=== PATIENT | female | born 1950 | race Caucasian/White ===

== ENCOUNTER 2016-07-14 05:23 | Emergency (ER) | payer MEDICARE ==
[2016-07-14] MEDS ORDERED: IPRATROPIUM/ALBUTEROL 0.5-2.5 MG/3 ML AMPUL NEB ONE (05:51)
[2016-07-14] MEDS ORDERED: PREDNISONE 20 MG TABLET PO ONE (05:51)
[2016-07-14] MEDS: ALBUTEROL SULFATE 0.083% NEB 2.5 MG/3 ML AMPUL NEB SCH ×2 (06:02→06:48)
[2016-07-14] MEDS ORDERED: HYDROCODONE/ACETAMINOPHEN 5-325 MG TABLET PO ONE (06:36)
--- NOTE | 2016-07-14 06:58 | ER Document Report ---
ED General - General Mode of Arrival: Medic Information source: Patient, Emergency Med Personnel, Outside Facility Records TRAVEL OUTSIDE OF THE [place] IN LAST 30 DAYS: No - HPI Patient complains to provider of: Right Rib Pain Onset: Yesterday Onset/Duration: Sudden Associated symptoms: Hurts to breath, Other - Neck pain Exacerbated by: Walking - General Chief Complaint: Breathing Difficulty Stated Complaint: FALL/DIFFICULTY BREATHING Notes: Patient is a 65-year-old female presenting to the emergency department concerned of right rib and left neck pain after she fell giving her dog a bath yesterday. Patient states she stepped out of the tub and slipped on some water , breaking her toilet. Patient denies any loss of consciousness. Patient states that she is having some difficulty breathing because of the rib pain. Patient also states that she has been coughing with green sputum for the past 2 days and she is slow just walking secondary to the difficulty breathing. (MARCELLE CASON) - Related Data Allergies/Adverse Reactions: Sulfa (Sulfonamide Antibiotics) Allergy (Verified 07/14/16 05:36) Past Medical History - General Information source: Patient, Relative - - Social History Smoking Status: Current Every Day Smoker Chew tobacco use (# tins/day): No Frequency of alcohol use: None Drug Abuse: None Family History: Reviewed & Not Pertinent Patient has suicidal ideation: No Patient has homicidal ideation: No Pulmonary Medical History: Reports: Hx Bronchitis, Hx COPD, Hx Pneumonia Neurological Medical History: Reports: Hx Cerebrovascular Accident - 2011 Renal/ Medical History: Denies: Hx Peritoneal Dialysis Past Surgical History: Reports: Hx Cardiac Surgery - Stent placed 05/14/2009 - Immunizations Hx Diphtheria, Pertussis, Tetanus Vaccination: - unsure Review of Systems - Review of Systems Constitutional: No symptoms reported EENT: No symptoms reported Cardiovascular: No symptoms reported Respiratory: No symptoms reported Gastrointestinal: No symptoms reported Genitourinary: No symptoms reported Female Genitourinary: No symptoms reported Musculoskeletal: See HPI, Neck pain - Left, Other - Right rib pain Skin: No symptoms reported Hematologic/Lymphatic: No symptoms reported Neurological/Psychological: No symptoms reported. denies: Lost consciousness -: Yes All other systems reviewed and negative Physical Exam - General General appearance: Alert - HEENT Head: Normocephalic, Atraumatic Eyes: Normal Pupils: PERRL - Respiratory Chest status: Nontender, Pain with deep breathing - Rib pain Breath sounds: Rhonchi - Cardiovascular Rhythm: Regular Heart sounds: Normal auscultation Murmur: No - Abdominal Distension: No distension Bowel sounds: Normal Tenderness: Tender - Right anterior and posterior rib tenderness with compression Organomegaly: No organomegaly - Back Back: Normal, Nontender - Extremities General upper extremity: Normal inspection, Nontender General lower extremity: Normal inspection, Nontender - Neurological Neuro grossly intact: Yes Cognition: Normal [place] Coma Scale Eye Opening: Spontaneous [place] Coma Scale Verbal: Oriented [place] Coma Scale Motor: Obeys Commands Ap Coma Scale Total: 15 Speech: Normal - Psychological Associated symptoms: Normal affect, Normal mood - Skin Skin Temperature: Warm Skin Moisture: Dry Skin Color: Normal Course - Re-evaluation Re-evalutation: 07/14/16 06:59 I personally performed the services described in the documentation, reviewed and edited the documentation which was dictated to my scribe in my presence, and it accurately records my words and actions. Wilian presents emergency Department with a chief complaint of tripped on water cleaning her dog yesterday hit the right ribs. She had pain in the ribs increased cough productive of sputum no fevers or chills she is a chronic COPD her still smokes not on oxygen at home satting 99% on 2 L no respiratory distress with rhonchi receiving breathing treatments. Chest x-ray questionable nodule versus no obvious rib fractures. We'll treat the patient for pneumonia give follow-up instructions on nodule pain control. Primary care physician in 2- 3 days and discussed reasons Fredia return sooner (KATHE JIMENEZ) - Vital Signs Vital signs: Temp Pulse Resp BP Pulse Ox 97.8 F 74 18 124/70 99 07/14/16 06:07 07/14/16 06:07 07/14/16 07:03 07/14/16 07:03 07/14/16 07:03 - EKG Interpretation by Me Additional EKG results interpreted by me: 07/14/16 07:04 EKG interpreted myself to reveal sinus rhythm at 78. Beats per minute no acute ST segment elevation or depression (KATHE JIMENEZ) Discharge - Discharge Clinical Impression: acute pneumonia, Pulmonary nodule Contusion of rib on right side Qualifiers: Encounter type: initial encounter Qualified Code(s): S20.211A - Contusion of right front wall of thorax, initial encounter Condition: Stable Disposition: HOME, SELF-CARE Additional Instructions: Pneumonia Your examination indicates that you have pneumonia. This is an infection of the lung tissue, usually caused by bacteria or a virus. Symptoms include cough, fever, shaking chills, chest pain, shortness of breath, and coughing up bloody sputum. Treatment for bacterial pneumonia includes rest, antibiotics for 10 to 14 days, increasing your clear liquid intake, a cool mist humidifier at your bedside, and fever medication. Often, a repeat chest X-ray is performed in a few weeks--even if you feel better--to ascertain whether the infection has completely resolved and no underlying lung problem is present. You should call the physician if you develop persistent vomiting, high fever that does not respond to fever medication, increasing shortness of breath , confusion, or lethargy. Also, failure to improve within two to three days is an indication for re-examination. Rib Contusion You have been diagnosed as having bruised ribs. It will usually take a few weeks for these injured ribs to heal. You should cough or take a deep breath at least every hour or two to prevent lung complications. You should not engage in any strenuous physical activity until released by your physician. The usual rule is "if it hurts, don' t do it." Return if you develop any of the following: (1) Fever or chills. (2) Persistent cough, coughing up blood, or shortness of breath. (3) Increasing pain. (4) Weakness, lightheadedness, or fainting. The radiologist has noted a nodule on your chest x-ray. This will need to be followed up with serial x-rays to make sure that this isn't an early cancerous lesion and is not growing in size. Please take this information reported to your family doctor so that they may do serial x-rays sure that there is no complications. Follow-up your primary care physician in 2-3 days return for increasing worsening or new symptoms Prescriptions: Amox Tr/Potassium Clavulanate [Augmentin 875-125 Tablet] 1 tab PO BID 10 Days Hydrocodone/Acetaminophen [Lula 5-325 mg Tablet] 1 tab PO TID #12 tablet Scribe Documentation - Scribe Written by Evon:: Marcelle Cason 07/14/2016 0657 acting as scribe for :: Estrada
[2016-07-14 07:06] VITALS: BP 124/70
--- NOTE | 2016-07-14 13:08 | EKG REPORT ---
SEVERITY:- BORDERLINE ECG - SINUS RHYTHM BORDERLINE PROLONGED QT INTERVAL : Confirmed by: Gabbie Miranda MD 14-Jul-2016 13:08:11
== END 2016-07-14 07:20 | disposition home or self-care (01) ==
LOC: ER 05:23
DX: S20.211A Contusion of right front wall of thorax, initial encounter (principal); J18.9 Pneumonia, unspecified organism; R91.1 Solitary pulmonary nodule; R06.02 Shortness of breath; R07.81 Pleurodynia; M54.2 Cervicalgia; R05 Cough; W19.XXXA Unspecified fall, initial encounter; F17.200 Nicotine dependence, unspecified, uncomplicated
CPT/HCPCS: 93005; 94640 ×2; 99285; 71010; 93010; A9270 ×4; J7512; J7620

== ENCOUNTER 2016-10-04 23:31 | Inpatient (IN) | payer MEDICARE ==
[2016-10-04] MEDS ORDERED: IPRATROPIUM/ALBUTEROL 0.5-2.5 MG/3 ML AMPUL NEB ONE (23:48)
[2016-10-04] MEDS ORDERED: METHYLPREDNISOLONE INJ 125 MG/2 ML SDV IV ONE (23:48)
[2016-10-04] MEDS ORDERED: NORMAL SALINE 1000 ML 1,000 ML IV ONE (23:49)
--- NOTE | 2016-10-04 23:52 | ER Document Report ---
ED General - General Stated Complaint: RESPIRATORY DISTRESS Time Seen by Provider: 10/04/16 23:38 Notes: Patient is a 65-year-old female presents with complaint of an overdose. and patient both say overdose was accidental. She has seen Patent tablets unaccounted for. When paramedics arrived she was. They did give her Narcan which should help wake her up some. says that the patient has a lot of severe chronic pain. They have a new doctor to avoid narcotics. She was placed on gabapentin to help better manage her pain. He says that the overdose was unintentional and that she probably took more medications than she was supposed to do try to get out of pain. He does not think there is any opiates in the house; however, he says that she did put away some opiates in the past in case she was having severe pain so she would have him for later. He says he does not think that they have these anymore but he is not 100% sure either. Patient denies being suicidal. Denies being nauseous. She has no other complaints at this time. He is a smoker. She presents on CPAP via the paramedics. TRAVEL OUTSIDE OF THE [place] IN LAST 30 DAYS: No - Related Data Allergies/Adverse Reactions: Sulfa (Sulfonamide Antibiotics) Allergy (Verified 10/05/16 00:23) Home Medications: Current Home Medications Albuterol Sulfate [Ventolin Hfa] 1 - 2 puff IH PRN PRN 10/04/16 [History] Amlodipine Besylate [Amlodipine Besylate] 10 mg PO DAILY 10/04/16 [History] Citalopram Hydrobromide [Celexa 20 mg Tablet] 20 mg PO DAILY 10/04/16 [History] Clopidogrel Bisulfate [Plavix 75 mg Tablet] 75 mg PO DAILY 10/04/16 [History] Gabapentin [Gabapentin] 300 mg PO TID 10/04/16 [History] Past Medical History - Social History Smoking Status: Current Every Day Smoker Frequency of alcohol use: None Drug Abuse: None Family History: Reviewed & Not Pertinent Pulmonary Medical History: Reports: Hx Bronchitis, Hx COPD, Hx Pneumonia Neurological Medical History: Reports: Hx Cerebrovascular Accident - 2011 Renal/ Medical History: Denies: Hx Peritoneal Dialysis Past Surgical History: Reports: Hx Cardiac Surgery - Stent placed 05/14/2009 - Immunizations Hx Diphtheria, Pertussis, Tetanus Vaccination: - unsure Review of Systems - Review of Systems Notes: My Normal Review Basic REVIEW OF SYSTEMS: CONSTITUTIONAL : Denies fever, chills, or sweats. Denies recent illness. EENT: Denies eye, ear, throat, or mouth pain or symptoms. Denies nasal or sinus congestion. CARDIOVASCULAR: Denies chest pain. RESPIRATORY: Difficulty breathing. GASTROINTESTINAL: Denies abdominal pain. Denies nausea, vomiting, or diarrhea. Denies constipation. Last BM: GENITOURINARY: Denies difficulty urinating, painful urination, burning, frequency, or blood in urine. FEMALE GENITOURINARY: Denies vaginal bleeding, abnormal or irregular periods. LMP: MUSCULOSKELETAL: Denies neck or back pain or joint pain or swelling. SKIN: Denies rash or skin lesions. NEUROLOGICAL: Altered mental status due to overdose. PSYCHIATRIC: Some chronic depression. No suicidal thoughts. ALL OTHER SYSTEMS REVIEWED AND NEGATIVE. Physical Exam - Vital signs Vitals: Resp Pulse Ox 27 H 95 10/04/16 23:37 10/04/16 23:37 - Notes Notes: General Appearance: Well nourished, alert, cooperative, mild acute distress, no obvious discomfort. Vitals: reviewed, See vital signs table. Head: no swelling or tenderness to the head Eyes: PERRL, EOMI, Conjuctiva clear Mouth: No decreasd moisture Neck: Supple, no neck tenderness, No thyromegaly Lungs: No wheezing, No rales, diffuse rhonci, No accessory muscle use, fair air exchange bilaterally. Heart: Normal rate, Regular rythm, No murmur, no rub Abdomen: Normal BS, soft, No rigidity, No abdominal tenderness, No guarding, no rebound, no abdominal masses, no organomegaly Extremities: strength 5/5 in all extremities, good pulses in all extremities, no swelling or tenderness in the extremities, no edema. Skin: warm, dry, appropriate color, no rash Neuro: speech clear, oriented x 3, normal affect, responds appropriately to questions. Cranial nerves II through XII are intact. Distal sensation intact. Patient moves all extremities without difficulty. Pupils are normal size and equal and reactive to light. Course - Re-evaluation Re-evalutation: 10/04/16 23:52 The suspected patient is overdosed accidentally on gabapentin most likely probably did have some leftover opiate medications that she took as well to help control pain. This is most likely why she became unresponsive. Patient is now awake and alert. She is hypotensive and therefore will give her IV fluid boluses. She does have very tight lung stevenson with rhonchi. I have ordered DuoNeb treatments. She is on BiPAP and doing well with the BiPAP. 10/05/16 01:36 Patient continues to be hypotensive despite 2 L of IV fluids. I have placed a central line and will start her on Levophed. I will discuss admission with the hospitalist. - Vital Signs Vital signs: Temp Pulse Resp BP Pulse Ox 98.7 F 15 85/46 L 95 10/04/16 23:47 10/05/16 01:15 10/05/16 01:15 10/05/16 01:15 - Laboratory Result Diagrams: 10/04/16 23:40 10/04/16 23:40 Laboratory results interpreted by me: 10/04/16 10/04/16 10/04/16 23:40 23:40 23:40 WBC 11.9 H Hgb 10.5 L Hct 32.1 L Seg Neutrophils % 84.4 H Lymphocytes % 9.2 L Absolute Neutrophils 10.1 H VBG pH 7.27 L BUN 33 H Creatinine 1.91 H Est GFR ( Amer) 32 L Est GFR (Non-Af Amer) 27 L Glucose 144 H Calcium 8.1 L Direct Bilirubin 0.6 H Salicylates < 1.0 L Acetaminophen < 10 L - EKG Interpretation by Me Additional EKG results interpreted by me: 10/05/16 00:29 EKG is reviewed and interpreted by me. EKG shows normal sinus rhythm with a rate of [address] segment elevation or depression. No ischemic T-wave inversions. DE interval, QRS duration, QTc intervals are within normal range. Old EKG for comparison is from July 14, 2016 - Transfer of Care Notes: 10/05/16 01:59 Procedures - Central Line Right Internal jugular Consent obtained: Yes - verbal Central line lumen type: Triple Ultrasound guided: Yes CM at insertion site: 15 Line secured with sutures: Yes Central line post-insertion: Blood return from lumens, Biopatch applied, Sutured , Sterile dressing applied, Position confirmed w/ CXR Number of attempts: 1 Complications: No Discharge - Discharge Clinical Impression: Overdose Qualifiers: Encounter type: initial encounter Injury intent: undetermined intent Qualified Code(s): T50.904A - Poisoning by unspecified drugs, medicaments and biological substances, undetermined, initial encounter Condition: Stable Disposition: ADMITTED INPATIENT Admitting Provider: Hospitalist Unit Admitted: ICU Additional Instructions: The hospitalist who agrees with the patient. Patient's symptoms consistent with gabapentin overdose. I suspect this possibility may have also had opiates. Drug screen is still pending. Patient continued to be hypotensive and therefore pressors were started. Patient will be admitted for further workup and treatment. Dictation of this chart was performed using voice recognition software; therefore, there may be some unintended grammatical errors.
[2016-10-05 00:05] LABS: VENOUS BLOOD PCO2 53.1 mmHg (35-63); VENOUS BLOOD PH 7.27 (7.30-7.42)
[2016-10-05 00:06] LABS: ABSOLUTE EOSINOPHILS # (AUTO) 0.1 10^3/uL (0.0-0.6); ABSOLUTE LYMPHOCYTES (AUTO) 1.1 10^3/uL (0.5-4.7); ABSOLUTE MONOCYTES (AUTO) 0.6 10^3/uL (0.1-1.4); ABSOLUTE NEUT (AUTO) 10.1 10^3/uL (1.7-8.2); BASOPHILS % (AUTO) 0.4 % (0-2); EOSINOPHILS % (AUTO) 0.6 % (0-6); HEMATOCRIT 32.1 % (36.0-47.0); HEMOGLOBIN 10.5 g/dL (12.0-15.5); HGB HCT DIFFERENCE -0.6; LYMPHOCYTES % (AUTO) 9.2 % (13-45); MEAN CORPUSCULAR HEMOGLOBIN 28.1 pg (27.0-33.4); MEAN CORPUSCULAR HGB CONC 32.7 g/dL (32.0-36.0); MEAN CORPUSCULAR VOLUME 86 fl (80-97); MONOCYTES % (AUTO) 5.4 % (3-13); RED BLOOD COUNT 3.74 10^6/uL (3.72-5.28); RED CELL DISTRIBUTION WIDTH 13.7 % (11.5-14.0); SEGMENTED NEUTROPHILS % (AUTO) 84.4 % (42-78); VENOUS BLOOD BASE EXCESS -3.4 mmol/L; VENOUS BLOOD HCO3 23.9 mmol/L (20-32); WHITE BLOOD COUNT 11.9 10^3/uL (4.0-10.5)
[2016-10-05 00:21] LABS: ALANINE AMINOTRANSFERASE 26 U/L (9-52); ALBUMIN 3.6 g/dL (3.5-5.0); ALKALINE PHOSPHATASE 90 U/L (38-126); ANION GAP 13 (5-19); ASPARTATE AMINO TRANSFERASE 26 U/L (14-36); BILIRUBIN,DIRECT 0.6 mg/dL (0.0-0.4); BILIRUBIN,TOTAL 0.8 mg/dL (0.2-1.3); BLOOD UREA NITROGEN 33 mg/dL (7-20); CALCIUM 8.1 mg/dL (8.4-10.2); CARBON DIOXIDE 23 mmol/L (22-30); CHLORIDE 103 mmol/L (98-107); CREATININE RESULT 1.91 mg/dL (0.52-1.25); GLUCOSE 144 mg/dL (75-110); POTASSIUM 4.2 mmol/L (3.6-5.0); SODIUM 138.6 mmol/L (137-145); TOTAL PROTEIN 7.6 g/dL (6.3-8.2)
[2016-10-05] MEDS ORDERED: NORMAL SALINE 1000 ML 1,000 ML IV ONE ×2 (00:30→01:20)
--- NOTE | 2016-10-05 00:50 | RADIOLOGY REPORT (SQ) ---
EXAM DESCRIPTION: CHEST SINGLE VIEW COMPLETED DATE/TIME: 10/05/2016 12:22 am REASON FOR STUDY: dyspnea COMPARISON: None. EXAM PARAMETERS: NUMBER OF VIEWS: One view. TECHNIQUE: Single frontal radiographic view of the chest acquired. RADIATION DOSE: NA LIMITATIONS: None. FINDINGS: LUNGS AND PLEURA: Moderate interstitial markings,, small multifocal patchiness of the beatrice pheral low left lower lung field and small patchiness of the peripheral right lower lung field. Surg ical clips of the left apex. MEDIASTINUM AND HILAR STRUCTURES: No masses. Contour normal. HEART AND VASCULAR STRUCTURES: Heart normal in size. Normal vasculature. BONES: No acute findings. HARDWARE: None in the chest. OTHER: No other significant finding. IMPRESSION: Increased small-moderate mixed interstitial and airspace opacity with lower lobe predomi nance. Differential diagnosis includes pulmonary edema and other infectious, inflammatory, neoplasti c processes. Recommend baseline contrast CT chest. TECHNICAL DOCUMENTATION: JOB ID: [id number]
[2016-10-05] MEDS ORDERED: NOREPINEPHRINE BITARTRATE INJ/PF 4 MG/4 ML SDV IV ONE (01:30)
[2016-10-05] MEDS ORDERED: DEXTROSE 5%-WATER 250 ML with NOREPINEPHRINE BITARTRATE 4 MG IV PRN ×4 (01:37→02:02)
[2016-10-05] MEDS ORDERED: NALOXONE HCL INJ/PF 0.4 MG/1 ML SDV IV PRN (02:02)
--- NOTE | 2016-10-05 02:08 | RADIOLOGY REPORT (SQ) ---
EXAM DESCRIPTION: CHEST SINGLE VIEW COMPLETED DATE/TIME: 10/05/2016 1:47 am REASON FOR STUDY: central line placement COMPARISON: None. EXAM PARAMETERS: NUMBER OF VIEWS: One view. TECHNIQUE: Single frontal radiographic view of the chest acquired. RADIATION DOSE: NA LIMITATIONS: None. FINDINGS: LUNGS AND PLEURA: Moderate mixed interstitial and airspace opacity with lower lobe predomi nance consistent with exam from 90 minutes prior. Left apical clips. MEDIASTINUM AND HILAR STRUCTURES: No masses. Contour normal. HEART AND VASCULAR STRUCTURES: Heart normal in size. Normal vasculature. BONES: No acute findings. HARDWARE: Right internal jugular central line tip is 7.4 cm from the cavoatrial junction. OTHER: No other significant finding. IMPRESSION: Right IJ line. Moderate mixed interstitial and airspace opacity. TECHNICAL DOCUMENTATION: JOB ID: [id number]
[2016-10-05] MEDS ORDERED: NALOXONE HCL INJ/PF 0.4 MG/1 ML SDV IV ONE (02:16)
[2016-10-05] MEDS ORDERED: NALOXONE HCL INJ 2 MG/2 ML DISP.SYRIN ONE ×3 (02:18→05:32)
[2016-10-05 02:30] LABS: URINE BARBITURATES SCREEN NEGATIVE; URINE METHADONE SCREEN NEGATIVE; URINE OPIATES LOW UNCONFIRMED POSITIVE; URINE PHENCYCLIDINE SCREEN NEGATIVE
[2016-10-05 02:51] LABS: CREATINE KINASE MB 6.51 ng/mL (<4.55)
[2016-10-05 02:53] LABS: TROPONIN I < 0.012 ng/mL
[2016-10-05] MEDS ORDERED: NOREPINEPHRINE BITARTRATE INJ/PF 4 MG/4 ML SDV IV PRN (03:00)
[2016-10-05] MEDS: IPRATROPIUM/ALBUTEROL 0.5-2.5 MG/3 ML AMPUL NEB SCH ×4 (03:05→20:49)
[2016-10-05 03:53] LABS: ARTERIAL BLOOD BASE EXCESS -10.3 mmol/L; ARTERIAL BLOOD O2 SATURATION 95.7 % (94-98)
[2016-10-05] MEDS ORDERED: SODIUM BICARBONATE 8.4% INJ 50 MEQ/50 ML DISP.SYRIN ONE (04:09)
[2016-10-05] MEDS: NORMAL SALINE 1000 ML 1,000 ML IV SCH ×3 (04:26→11:19)
[2016-10-05] MEDS ORDERED: DEXTROSE 5% IV PRN ×2 (04:33)
[2016-10-05] MEDS ORDERED: SODIUM BICARBONATE IV PRN ×2 (04:33)
[2016-10-05] MEDS ORDERED: WATER IV PRN ×2 (04:33)
[2016-10-05] MEDS ORDERED: SODIUM BICARBONATE 8.4% INJ 50 MEQ/50 ML DISP.SYRIN IV PRN (04:36)
[2016-10-05] MEDS ORDERED: NORMAL SALINE 500 ML with NALOXONE HCL 2 MG IV PRN ×2 (04:58)
[2016-10-05] MEDS ORDERED: NALOXONE HCL INJ 2 MG/2 ML DISP.SYRIN IV ONE ×2 (05:00→06:00)
--- NOTE | 2016-10-05 05:15 | PDOC H&P ---
History of Present Illness Admission Date/PCP: 10/05/16 01:58 Patient complains of: Altered mental status History of Present Illness: ROSANNA MARIE is a 65 year old female with a past medical history of COPD, coronary artery disease, depression, chronic pain and Tobacco Dependence. Patient was brought to the emergency room after contacted EMS for altered mental status and unintentional overdose with unknown opiate and Neurontin of unknown quantity. She is received 2 doses of Narcan with brief improvement of mental status. There is no history of suicide attempts. Patient state her new physician has discontinued opiate treatment for chronic pain. The patient is obtunded and otherwise able to participate in the history and physical. There are no old records available. Past Medical History Cardiac Medical History: Reports: Hypertension Pulmonary Medical History: Reports: Bronchitis, Chronic Obstructive Pulmonary Disease (COPD), Pneumonia Psychiatric Medical History: Reports: Tobacco Dependency Social History Information Source: Emergency Med Personnel Lives with: Spouse/Significant other Smoking Status: Current Every Day Smoker - Advance Directive Resuscitation Status: Full Code Family History Family History: Reviewed & Not Pertinent, Other - Unobtainable Parental Family History Reviewed: Yes - Unobtainable Children Family History Reviewed: Yes - Unobtainable Sibling(s) Family History Reviewed.: Yes - Unobtainable Medication/Allergy Home Medications: Albuterol Sulfate [Ventolin Hfa] 1 - 2 puff IH PRN PRN 10/04/16 Amlodipine Besylate [Amlodipine Besylate] 10 mg PO DAILY 10/04/16 Citalopram Hydrobromide [Celexa 20 mg Tablet] 20 mg PO DAILY 10/04/16 Clopidogrel Bisulfate [Plavix 75 mg Tablet] 75 mg PO DAILY 10/04/16 Gabapentin [Gabapentin] 300 mg PO TID 10/04/16 Allergies/Adverse Reactions: Sulfa (Sulfonamide Antibiotics) Allergy (Verified 10/05/16 00:23) Review of Systems ROS unobtainable: Due to mental status - Unobtainable Physical Exam Vital Signs: Temp Pulse Resp BP Pulse Ox 98.7 F 21 H 118/61 94 10/04/16 23:47 10/05/16 02:55 10/05/16 02:55 10/05/16 02:55 General appearance: PRESENT: other - Obtunded Head exam: PRESENT: atraumatic, normocephalic Eye exam: PRESENT: conjunctiva pink, EOMI, PERRLA, other - Pinpoint pupils symmetric and sluggishly responsive, following Narcan 6 mm symmetric and responsive. ABSENT: scleral icterus Ear exam: PRESENT: normal external ear exam Mouth exam: PRESENT: moist, tongue midline Neck exam: ABSENT: carotid bruit, JVD, lymphadenopathy, thyromegaly Respiratory exam: PRESENT: clear to auscultation mirian, crackles, rales, symmetrical, tachypnea. ABSENT: rhonchi, wheezes Cardiovascular exam: PRESENT: RRR. ABSENT: diastolic murmur, rubs, systolic murmur Pulses: PRESENT: normal dorsalis pedis pul Vascular exam: PRESENT: normal capillary refill GI/Abdominal exam: PRESENT: normal bowel sounds, soft. ABSENT: distended, guarding, mass, organolmegaly, rebound, tenderness Rectal exam: PRESENT: deferred Extremities exam: PRESENT: full ROM. ABSENT: calf tenderness, clubbing, pedal edema Neurological exam: PRESENT: altered, other - Obtunded. ABSENT: alert, awake, oriented to person, oriented to place, oriented to time, oriented to situation, reflexes normal, motor sensory deficit Skin exam: PRESENT: dry, intact, warm, other. ABSENT: cyanosis, rash Results Laboratory Results: 10/05/16 03:40 Carbonic Acid 1.39 H HCO3/H2CO3 Ratio 12:1 ABG pH 7.19 L* ABG pCO2 46.3 H ABG pO2 96.5 ABG HCO3 17.4 L ABG O2 Saturation 95.7 ABG Base Excess -10.3 FiO2 40% 10/05/16 10/05/16 02:20 02:20 Creatine Kinase 282 H CK-MB (CK-2) 6.51 H Troponin I < 0.012 Impressions: Chest X-Ray 10/05/16 00:00 IMPRESSION: Right IJ line. Moderate mixed interstitial and airspace opacity. Assessment & Plan - Diagnosis (1) Overdose Qualifiers: Encounter type: initial encounter Injury intent: undetermined intent Qualified Code(s): T50.904A - Poisoning by unspecified drugs, medicaments and biological substances, undetermined, initial encounter Is this a current diagnosis for this admission?: YesPlan: Presumed unintentional overdose for control of pain. Evidence for opiate and Neurontin overdose she is admitted to the ICU with IV Narcan, and supportive care. (2) Hypotension Is this a current diagnosis for this admission?: YesPlan: Secondary to opiate and Neurontin overdose. IV fluid challenge without significant improvement norepinephrine started for goal MAP is 65 (3) Acidosis, metabolic Is this a current diagnosis for this admission?: YesPlan: Secondary to #1 and #2. IV fluid norepinephrine and Narcan initiated follow-up chemistry, ABG and lactic acid. IV bicarb as needed (4) Acute renal failure Is this a current diagnosis for this admission?: YesPlan: Most likely secondary to hypotension, IV fluid challenge initiated avoiding nephrotoxic meds and doses reevaluation chemistry (5) Aspiration pneumonia Is this a current diagnosis for this admission?: YesPlan: Secondary to overdose patient currently protecting airway she is placed on IV clindamycin. - Time Time Spent: 50 to 70 Minutes - Inpatient Certification Medical Necessity: Need Close Monitoring Due to Risk of Patient Decompensation
[2016-10-05] MEDS: HEPARIN SOD (PORCINE) 5,000 UNIT/ML 1 ML SYRINGE SUBCUT SCH ×3 (05:21→21:07)
[2016-10-05] MEDS ORDERED: NALOXONE HCL INJ 2 MG/2 ML DISP.SYRIN IV PRN (06:00)
[2016-10-05 06:10] LABS: ARTERIAL BLOOD BASE EXCESS -6.3 mmol/L; ARTERIAL BLOOD O2 SATURATION 98.5 % (94-98)
[2016-10-05 06:24] LABS: ALANINE AMINOTRANSFERASE 28 U/L (9-52); ALBUMIN 3.1 g/dL (3.5-5.0); ALKALINE PHOSPHATASE 84 U/L (38-126); ANION GAP 12 (5-19); ASPARTATE AMINO TRANSFERASE 25 U/L (14-36); BILIRUBIN,DIRECT 0.7 mg/dL (0.0-0.4); BILIRUBIN,TOTAL 0.9 mg/dL (0.2-1.3); BLOOD UREA NITROGEN 27 mg/dL (7-20); CALCIUM 7.2 mg/dL (8.4-10.2); CARBON DIOXIDE 20 mmol/L (22-30); CHLORIDE 108 mmol/L (98-107); CREATININE RESULT 1.59 mg/dL (0.52-1.25); GLUCOSE 284 mg/dL (75-110); POTASSIUM 3.8 mmol/L (3.6-5.0); SODIUM 140.2 mmol/L (137-145); TOTAL PROTEIN 6.9 g/dL (6.3-8.2)
[2016-10-05] MEDS: CLINDAMYCIN 900 MG/D5W RTU 50 ML IV SCH ×3 (06:24→21:08)
[2016-10-05 08:22] LABS: CREATINE KINASE MB 6.14 ng/mL (<4.55)
[2016-10-05 08:23] LABS: TROPONIN I < 0.012 ng/mL
--- NOTE | 2016-10-05 08:39 | EKG REPORT ---
SEVERITY:- ABNORMAL ECG - PACEMAKER ARTIFACTS SINUS RHYTHM : Confirmed by: Remington Fischer 05-Oct-2016 08:38:32
[2016-10-05] MEDS: NORMAL SALINE 500 ML with NALOXONE HCL 2 MG IV PRN ×6 (08:55→13:32)
--- NOTE | 2016-10-05 10:35 | PDOC PROGRESS REPORT ---
Subjective Progress Note for:: 10/05/16 Subjective:: Was somewhat sedated when I examined her however we increased her Narcan and she was able to wake up and answer questions. She is currently on a BiPAP Physical Exam Vital Signs: Temp Pulse Resp BP Pulse Ox 99.0 F 73 17 104/59 L 100 10/05/16 03:27 10/05/16 07:41 10/05/16 08:49 10/05/16 08:49 10/05/16 08:49 Intake & Output 10/04/16 10/05/16 10/06/16 06:59 06:59 06:59 Intake Total 1784 Output Total 625 550 Balance 1159 -550 Weight 68.8 kg General appearance: PRESENT: no acute distress Eye exam: PRESENT: conjunctiva pink. ABSENT: scleral icterus Mouth exam: PRESENT: moist, tongue midline Neck exam: ABSENT: JVD Respiratory exam: PRESENT: clear to auscultation mirian. ABSENT: rales, rhonchi, wheezes Cardiovascular exam: PRESENT: RRR. ABSENT: diastolic murmur, rubs, systolic murmur GI/Abdominal exam: PRESENT: normal bowel sounds, soft. ABSENT: distended, guarding, mass, organolmegaly, rebound, tenderness Extremities exam: ABSENT: calf tenderness, clubbing, pedal edema Neurological exam: PRESENT: awake, oriented to person, oriented to place Psychiatric exam: PRESENT: flat affect Skin exam: PRESENT: dry, intact, warm. ABSENT: cyanosis, rash Results Laboratory Results: 10/05/16 05:47 10/05/16 10/05/16 10/05/16 03:40 05:47 05:47 Carbonic Acid 1.39 H 1.42 H HCO3/H2CO3 Ratio 12:1 14:1 ABG pH 7.19 L* 7.26 L ABG pCO2 46.3 H 47.3 H ABG pO2 96.5 142.8 H ABG HCO3 17.4 L 20.6 ABG O2 Saturation 95.7 98.5 H ABG Base Excess -10.3 -6.3 FiO2 40% 40% Sodium 140.2 Potassium 3.8 Chloride 108 H Carbon Dioxide 20 L Anion Gap 12 BUN 27 H Creatinine 1.59 H Est GFR ( Amer) 40 L Est GFR (Non-Af Amer) 33 L Glucose 284 H Lactic Acid Calcium 7.2 L Total Bilirubin 0.9 AST 25 ALT 28 Alkaline Phosphatase 84 Total Protein 6.9 Albumin 3.1 L 10/05/16 07:36 Carbonic Acid HCO3/H2CO3 Ratio ABG pH ABG pCO2 ABG pO2 ABG HCO3 ABG O2 Saturation ABG Base Excess FiO2 Sodium Potassium Chloride Carbon Dioxide Anion Gap BUN Creatinine Est GFR ( Amer) Est GFR (Non-Af Amer) Glucose Lactic Acid 2.5 H Calcium Total Bilirubin AST ALT Alkaline Phosphatase Total Protein Albumin 10/05/16 10/05/16 10/05/16 02:20 02:20 07:36 Creatine Kinase 282 H 268 H CK-MB (CK-2) 6.51 H Troponin I < 0.012 10/05/16 07:36 Creatine Kinase CK-MB (CK-2) 6.14 H Troponin I < 0.012 Impressions: Chest X-Ray 10/05/16 00:00 IMPRESSION: Right IJ line. Moderate mixed interstitial and airspace opacity. Assessment & Plan - Diagnosis (1) Overdose Qualifiers: Encounter type: initial encounter Injury intent: undetermined intent Qualified Code(s): T50.904A - Poisoning by unspecified drugs, medicaments and biological substances, undetermined, initial encounter Is this a current diagnosis for this admission?: YesPlan: Patient took a narcotic and Neurontin. She is on a Narcan drip and currently is able to maintain her airway. We will continue with the BiPAP and the Narcan drip. (2) Hypotension Is this a current diagnosis for this admission?: YesPlan: Likely secondary to her underlying overdose and the possibility of early sepsis is considered. She has improved with a Narcan drip. With IV fluids. (3) Aspiration pneumonia Is this a current diagnosis for this admission?: YesPlan: Secondary to her taking excessive narcotics. Will continue with the clindamycin (4) Acute renal failure Is this a current diagnosis for this admission?: YesPlan: Likely prerenal secondary to decreased p.o. intake. Creatinine has improved overnight. We will continue with the IV fluids. (5) Acidosis, metabolic Is this a current diagnosis for this admission?: YesPlan: Likely secondary to the acute renal failure. We will continue to give IV fluids. - Time Time Spent with patient: 25-34 minutes - Inpatient Certification Medical Necessity: Need Close Monitoring Due to Risk of Patient Decompensation, Need For IV Fluids
[2016-10-05 14:59] LABS: CREATINE KINASE MB 5.49 ng/mL (<4.55)
[2016-10-05 15:03] LABS: TROPONIN I < 0.012 ng/mL
[2016-10-05] MEDS: NORMAL SALINE 1000 ML 1,000 ML IV PRN ×2 (15:25→22:50)
[2016-10-06] MEDS: IPRATROPIUM/ALBUTEROL 0.5-2.5 MG/3 ML AMPUL NEB SCH ×4 (03:00→19:43)
[2016-10-06] MEDS: NORMAL SALINE 1000 ML 1,000 ML IV PRN (05:33)
[2016-10-06 05:38] LABS: ABSOLUTE LYMPHOCYTES (AUTO) 1.3 10^3/uL (0.5-4.7); ABSOLUTE MONOCYTES (AUTO) 0.5 10^3/uL (0.1-1.4); BASOPHILS % (AUTO) 0.1 % (0-2); EOSINOPHILS % (AUTO) 0.1 % (0-6); HEMATOCRIT 25.7 % (36.0-47.0); HGB HCT DIFFERENCE -0.5; MEAN CORPUSCULAR HEMOGLOBIN 28.2 pg (27.0-33.4); MEAN CORPUSCULAR HGB CONC 32.8 g/dL (32.0-36.0); MEAN CORPUSCULAR VOLUME 86 fl (80-97); MONOCYTES % (AUTO) 6.2 % (3-13); RED BLOOD COUNT 2.99 10^6/uL (3.72-5.28); RED CELL DISTRIBUTION WIDTH 14.1 % (11.5-14.0); SEGMENTED NEUTROPHILS % (AUTO) 76.6 % (42-78); WHITE BLOOD COUNT 7.8 10^3/uL (4.0-10.5)
[2016-10-06 05:42] LABS: ALANINE AMINOTRANSFERASE 21 U/L (9-52); ALBUMIN 2.8 g/dL (3.5-5.0); ALKALINE PHOSPHATASE 77 U/L (38-126); ANION GAP 9 (5-19); ASPARTATE AMINO TRANSFERASE 25 U/L (14-36); BILIRUBIN,DIRECT 0.3 mg/dL (0.0-0.4); BILIRUBIN,TOTAL 0.4 mg/dL (0.2-1.3); BLOOD UREA NITROGEN 19 mg/dL (7-20); CALCIUM 7.3 mg/dL (8.4-10.2); CARBON DIOXIDE 23 mmol/L (22-30); CHLORIDE 108 mmol/L (98-107); CREATININE RESULT 1.03 mg/dL (0.52-1.25); GLUCOSE 87 mg/dL (75-110); HEMOGLOBIN 8.4 g/dL (12.0-15.5); MAGNESIUM 1.8 mg/dL (1.6-2.3); POTASSIUM 3.7 mmol/L (3.6-5.0); SODIUM 139.6 mmol/L (137-145); TOTAL PROTEIN 5.9 g/dL (6.3-8.2)
[2016-10-06] MEDS: HEPARIN SOD (PORCINE) 5,000 UNIT/ML 1 ML SYRINGE SUBCUT SCH ×3 (06:15→22:23)
[2016-10-06] MEDS: CLINDAMYCIN 900 MG/D5W RTU 50 ML IV SCH (06:15)
[2016-10-06] MEDS ORDERED: HYDRALAZINE HCL INJ/PF 20 MG/1 ML SDV IV PRN (08:09)
--- NOTE | 2016-10-06 08:14 | PDOC PROGRESS REPORT ---
Subjective Progress Note for:: 10/06/16 Subjective:: Patient states she is feeling much better than on admission. Her breathing is significantly improved but she is not back to baseline. Patient denies fever, chills, headache, new focal weakness, chest pain, shortness of breath, abdominal pain, nausea, vomiting, diarrhea, constipation. Physical Exam Vital Signs: Temp Pulse Resp BP Pulse Ox 99.0 F 66 17 110/64 94 10/05/16 03:27 10/06/16 03:00 10/06/16 06:04 10/06/16 06:04 10/06/16 06:04 Intake & Output 10/05/16 10/06/16 10/07/16 06:59 06:59 06:59 Intake Total 1784 6119 Output Total 625 3275 Balance 1159 2844 Weight 68.8 kg 72.6 kg GENERAL: No acute distress HEENT: Conjunctiva clear, nonicteric, moist mucous membranes, no JVD, midline trachea RESPIRATORY: Bilateral wheezes and rhonchi, good air excursion CARDIAC: Regular rate and rhythm, no murmurs/gallops/rubs ABDOMEN: Soft, nondistended, nontender, positive bowel sounds, no rebound, no guarding EXTREMETIES: No edema, cyanosis, clubbing NEUROLOGIC: Alert, oriented to person/place/time, CN's grossly intact, no focal deficits SKIN: No rash, wounds PSYCH: Normal mood, normal affect Results Laboratory Results: 10/06/16 05:15 10/06/16 05:15 10/05/16 10/06/16 10/06/16 07:36 05:15 05:15 WBC 7.8 RBC 2.99 L Hgb 8.4 L D Hct 25.7 L MCV 86 MCH 28.2 MCHC 32.8 RDW 14.1 H Plt Count 130 L Seg Neutrophils % 76.6 Lymphocytes % 17.0 Monocytes % 6.2 Eosinophils % 0.1 Basophils % 0.1 Absolute Neutrophils 6.0 Absolute Lymphocytes 1.3 Absolute Monocytes 0.5 Absolute Eosinophils 0.0 Absolute Basophils 0.0 Sodium 139.6 Potassium 3.7 Chloride 108 H Carbon Dioxide 23 Anion Gap 9 BUN 19 Creatinine 1.03 Est GFR ( Amer) > 60 Est GFR (Non-Af Amer) 54 L Glucose 87 Lactic Acid 2.5 H Calcium 7.3 L Magnesium 1.8 Total Bilirubin 0.4 AST 25 ALT 21 Alkaline Phosphatase 77 Total Protein 5.9 L Albumin 2.8 L 10/05/16 10/05/16 10/05/16 02:20 02:20 07:36 Creatine Kinase 282 H 268 H CK-MB (CK-2) 6.51 H Troponin I < 0.012 10/05/16 10/05/16 10/05/16 07:36 14:06 14:06 Creatine Kinase 208 H CK-MB (CK-2) 6.14 H 5.49 H Troponin I < 0.012 < 0.012 Impressions: Chest X-Ray 10/05/16 00:00 IMPRESSION: Right IJ line. Moderate mixed interstitial and airspace opacity. Assessment & Plan - Diagnosis (1) Acute hypoxemic respiratory failure Is this a current diagnosis for this admission?: YesPlan: Currently stable on room air. (2) Acute renal failure Is this a current diagnosis for this admission?: YesPlan: Resolved. (3) Aspiration pneumonia Is this a current diagnosis for this admission?: YesPlan: Likely bacterial with high probability of gram-negative organism. Discontinue IV clindamycin. Start oral Augmentin. (4) Hypotension Is this a current diagnosis for this admission?: YesPlan: Continue to hold blood pressure medicines. (5) Overdose Qualifiers: Encounter type: initial encounter Injury intent: undetermined intent Qualified Code(s): T50.904A - Poisoning by unspecified drugs, medicaments and biological substances, undetermined, initial encounter Is this a current diagnosis for this admission?: YesPlan: Now stable. (6) Chronic pain Is this a current diagnosis for this admission?: YesPlan: Resume Neurontin. (7) Hypertension Qualifiers: Hypertension type: essential hypertension Qualified Code(s): I10 - Essential (primary) hypertension Is this a current diagnosis for this admission?: YesPlan: Hold blood pressure medicines. - Time Time Spent with patient: 25-34 minutes Anticipated discharge: Home Within: within 24 hours
[2016-10-06] MEDS: CITALOPRAM HYDROBROMIDE 20 MG TABLET PO SCH (09:48)
[2016-10-06] MEDS: CLOPIDOGREL BISULFATE 75 MG TABLET PO SCH (09:48)
[2016-10-06] MEDS ORDERED: GABAPENTIN 300 MG CAPSULE PO SCH ×2 (12:00→22:00)
[2016-10-06] MEDS: AMOXICILLIN TR/POT CLAVULANATE 500-125 MG TAB PO SCH ×2 (14:22→22:25)
[2016-10-07] MEDS: IPRATROPIUM/ALBUTEROL 0.5-2.5 MG/3 ML AMPUL NEB SCH ×2 (02:01→08:34)
[2016-10-07] MEDS: HEPARIN SOD (PORCINE) 5,000 UNIT/ML 1 ML SYRINGE SUBCUT SCH (05:55)
[2016-10-07] MEDS: AMOXICILLIN TR/POT CLAVULANATE 500-125 MG TAB PO SCH (05:55)
[2016-10-07 08:00] LABS: ABSOLUTE MONOCYTES (AUTO) 0.6 10^3/uL (0.1-1.4); ABSOLUTE NEUT (AUTO) 5.8 10^3/uL (1.7-8.2); BASOPHILS % (AUTO) 0.4 % (0-2); EOSINOPHILS % (AUTO) 0.2 % (0-6); HEMATOCRIT 30.6 % (36.0-47.0); HEMOGLOBIN 10.3 g/dL (12.0-15.5); HGB HCT DIFFERENCE 0.3; LYMPHOCYTES % (AUTO) 12.9 % (13-45); MEAN CORPUSCULAR HEMOGLOBIN 28.4 pg (27.0-33.4); MEAN CORPUSCULAR HGB CONC 33.6 g/dL (32.0-36.0); MEAN CORPUSCULAR VOLUME 85 fl (80-97); MONOCYTES % (AUTO) 7.6 % (3-13); RED BLOOD COUNT 3.62 10^6/uL (3.72-5.28); RED CELL DISTRIBUTION WIDTH 13.9 % (11.5-14.0); SEGMENTED NEUTROPHILS % (AUTO) 78.9 % (42-78); WHITE BLOOD COUNT 7.4 10^3/uL (4.0-10.5)
[2016-10-07] MEDS ORDERED: GABAPENTIN 300 MG CAPSULE PO SCH (08:00)
[2016-10-07 08:20] LABS: ANION GAP 11 (5-19); BLOOD UREA NITROGEN 12 mg/dL (7-20); CALCIUM 8.9 mg/dL (8.4-10.2); CARBON DIOXIDE 25 mmol/L (22-30); CHLORIDE 104 mmol/L (98-107); CREATININE RESULT 0.75 mg/dL (0.52-1.25); GLUCOSE 95 mg/dL (75-110); POTASSIUM 3.4 mmol/L (3.6-5.0); SODIUM 140.2 mmol/L (137-145)
[2016-10-07] MEDS: CLOPIDOGREL BISULFATE 75 MG TABLET PO SCH (10:27)
[2016-10-07] MEDS: CITALOPRAM HYDROBROMIDE 20 MG TABLET PO SCH (10:27)
[2016-10-07 11:58] VITALS: BP 146/69
--- NOTE | 2016-10-07 14:40 | PDOC DISCHARGE SUMMARY ---
General - Admit/Disc Date/PCP Admission Date/Primary Care Provider: 10/05/16 01:58 Discharge Date: 10/07/16 - Discharge Diagnosis (1) Acute hypoxemic respiratory failure Is this a current diagnosis for this admission?: Yes (2) Acute renal failure Is this a current diagnosis for this admission?: Yes (3) Aspiration pneumonia Is this a current diagnosis for this admission?: Yes (4) Hypotension Is this a current diagnosis for this admission?: Yes (5) Overdose Is this a current diagnosis for this admission?: Yes (6) Chronic pain Is this a current diagnosis for this admission?: Yes (7) Hypertension Is this a current diagnosis for this admission?: Yes - Additional Information Resuscitation Status: Full Code Discharge Diet: Cardiac Discharge Activity: Slowly Increase Activity Home Medications: Amlodipine Besylate [Norvasc 10 mg Tablet] 10 mg PO DAILY 10/05/16 Citalopram Hydrobromide [Celexa 20 mg Tablet] 20 mg PO DAILY 10/05/16 Clopidogrel Bisulfate [Plavix 75 mg Tablet] 75 mg PO DAILY 10/05/16 Gabapentin [Neurontin 300 mg Capsule] 300 mg PO DAILY@1200 10/05/16 Gabapentin [Neurontin 300 mg Capsule] 300 mg PO QAM 10/05/16 Gabapentin [Neurontin 300 mg Capsule] 600 mg PO QHS 10/05/16 Amox Tr/Potassium Clavulanate [Augmentin "500" Tablet] 1 tab PO Q8 #21 tablet 10/07/16 Ondansetron [Zofran Odt 4 mg Tablet] 1 - 2 tab PO Q4HP PRN #10 tab.rapdis History of Present Illness Patient complains of: Altered mental status History of Present Illness: ROSANNA MAIRE is a 65 year old female with a past medical history of COPD, coronary artery disease, depression, chronic pain and Tobacco Dependence. Patient was brought to the emergency room after contacted EMS for altered mental status and unintentional overdose with unknown opiate and Neurontin of unknown quantity. She is received 2 doses of Narcan with brief improvement of mental status. There is no history of suicide attempts. Patient state her new physician has discontinued opiate treatment for chronic pain. The patient is obtunded and otherwise able to participate in the history and physical. There are no old records available. Hospital Course Hospital Course: Patient with unintentional overdose of Neurontin and opiate analgesic secondary to severe chronic pain. She was admitted to ICU for close monitoring and initially IV Narcan. She remained stable and did not require intubation. She was noted to have developed aspiration pneumonia as a result of altered mental status/overdose. She was initially started on IV clindamycin. As she stabilized she was transitioned to oral Augmentin. She was eventually weaned off nasal cannula oxygen and O2 sat was stable on room air at time of discharge. Patient was discharged home in stable condition. Patient had an acute kidney injury secondary to overdose and hypotension. This resolved. Physical Exam Vital Signs: Temp Pulse Resp BP Pulse Ox 98.3 F 77 18 139/68 H 94 10/07/16 11:36 10/07/16 11:36 10/07/16 11:36 10/07/16 11:36 10/07/16 11:36 Intake & Output 10/06/16 10/07/16 10/08/16 06:59 06:59 06:59 Intake Total 6119 354 Output Total 3275 1150 Balance 2844 -796 Weight 72.6 kg 72.5 kg GENERAL: No acute distress HEENT: Conjunctiva clear, nonicteric, moist mucous membranes, no JVD, midline trachea RESPIRATORY: Bilateral rhonchi CARDIAC: Regular rate and rhythm, no murmurs/gallops/rubs ABDOMEN: Soft, nondistended, nontender, positive bowel sounds, no rebound, no guarding EXTREMETIES: No edema, cyanosis, clubbing NEUROLOGIC: Alert, oriented to person/place/time, CN's grossly intact, no focal deficits SKIN: No rash, wounds PSYCH: Normal mood, normal affect Results Laboratory Results: 10/07/16 07:49 10/07/16 07:49 10/07/16 10/07/16 07:49 07:49 WBC 7.4 RBC 3.62 L Hgb 10.3 L Hct 30.6 L MCV 85 MCH 28.4 MCHC 33.6 RDW 13.9 Plt Count 161 Seg Neutrophils % 78.9 H Lymphocytes % 12.9 L Monocytes % 7.6 Eosinophils % 0.2 Basophils % 0.4 Absolute Neutrophils 5.8 Absolute Lymphocytes 1.0 Absolute Monocytes 0.6 Absolute Eosinophils 0.0 Absolute Basophils 0.0 Sodium 140.2 Potassium 3.4 L Chloride 104 Carbon Dioxide 25 Anion Gap 11 BUN 12 Creatinine 0.75 Est GFR ( Amer) > 60 Est GFR (Non-Af Amer) > 60 Glucose 95 Calcium 8.9 10/05/16 10/05/16 10/05/16 02:20 02:20 07:36 Creatine Kinase 282 H 268 H CK-MB (CK-2) 6.51 H Troponin I < 0.012 10/05/16 10/05/16 10/05/16 07:36 14:06 14:06 Creatine Kinase 208 H CK-MB (CK-2) 6.14 H 5.49 H Troponin I < 0.012 < 0.012 Labs- Entire Visit 10/04/16 10/04/16 10/04/16 23:40 23:40 23:40 WBC 11.9 H RBC 3.74 Hgb 10.5 L Hct 32.1 L MCV 86 MCH 28.1 MCHC 32.7 RDW 13.7 Plt Count 176 Seg Neutrophils % 84.4 H Lymphocytes % 9.2 L Monocytes % 5.4 Eosinophils % 0.6 Basophils % 0.4 Absolute Neutrophils 10.1 H Absolute Lymphocytes 1.1 Absolute Monocytes 0.6 Absolute Eosinophils 0.1 Absolute Basophils 0.0 Carbonic Acid HCO3/H2CO3 Ratio ABG pH ABG pCO2 ABG pO2 ABG HCO3 ABG Total CO2 ABG O2 Saturation ABG Base Excess VBG pH 7.27 L VBG pCO2 53.1 VBG HCO3 23.9 VBG Base Excess -3.4 FiO2 Sodium 138.6 Potassium 4.2 Chloride 103 Carbon Dioxide 23 Anion Gap 13 BUN 33 H Creatinine 1.91 H Est GFR ( Amer) 32 L Est GFR (Non-Af Amer) 27 L Glucose 144 H Lactic Acid Calcium 8.1 L Magnesium Total Bilirubin 0.8 Direct Bilirubin 0.6 H Indirect Bilirubin Not Reportable Neonat Total Bilirubin Not Reportable AST 26 ALT 26 Alkaline Phosphatase 90 Creatine Kinase CK-MB (CK-2) Troponin I Total Protein 7.6 Albumin 3.6 Salicylates < 1.0 L Urine Opiates Screen Urine Methadone Screen Acetaminophen < 10 L Ur Barbiturates Screen Ur Phencyclidine Scrn Ur Amphetamines Screen U Benzodiazepines Scrn Urine Cocaine Screen U Marijuana (THC) Screen 10/05/16 10/05/16 10/05/16 00:10 02:20 02:20 WBC RBC Hgb Hct MCV MCH MCHC RDW Plt Count Seg Neutrophils % Lymphocytes % Monocytes % Eosinophils % Basophils % Absolute Neutrophils Absolute Lymphocytes Absolute Monocytes Absolute Eosinophils Absolute Basophils Carbonic Acid HCO3/H2CO3 Ratio ABG pH ABG pCO2 ABG pO2 ABG HCO3 ABG Total CO2 ABG O2 Saturation ABG Base Excess VBG pH VBG pCO2 VBG HCO3 VBG Base Excess FiO2 Sodium Potassium Chloride Carbon Dioxide Anion Gap BUN Creatinine Est GFR ( Amer) Est GFR (Non-Af Amer) Glucose Lactic Acid Calcium Magnesium Total Bilirubin Direct Bilirubin Indirect Bilirubin Neonat Total Bilirubin AST ALT Alkaline Phosphatase Creatine Kinase 282 H CK-MB (CK-2) 6.51 H Troponin I < 0.012 Total Protein Albumin Salicylates Urine Opiates Screen UNCONFIRMED POSITIVE Urine Methadone Screen NEGATIVE Acetaminophen Ur Barbiturates Screen NEGATIVE Ur Phencyclidine Scrn NEGATIVE Ur Amphetamines Screen NEGATIVE U Benzodiazepines Scrn NEGATIVE Urine Cocaine Screen NEGATIVE U Marijuana (THC) Screen NEGATIVE 10/05/16 10/05/16 10/05/16 03:40 05:47 05:47 WBC RBC Hgb Hct MCV MCH MCHC RDW Plt Count Seg Neutrophils % Lymphocytes % Monocytes % Eosinophils % Basophils % Absolute Neutrophils Absolute Lymphocytes Absolute Monocytes Absolute Eosinophils Absolute Basophils Carbonic Acid 1.39 H 1.42 H HCO3/H2CO3 Ratio 12:1 14:1 ABG pH 7.19 L* 7.26 L ABG pCO2 46.3 H 47.3 H ABG pO2 96.5 142.8 H ABG HCO3 17.4 L 20.6 ABG Total CO2 18.8 L 22.1 ABG O2 Saturation 95.7 98.5 H ABG Base Excess -10.3 -6.3 VBG pH VBG pCO2 VBG HCO3 VBG Base Excess FiO2 40% 40% Sodium 140.2 Potassium 3.8 Chloride 108 H Carbon Dioxide 20 L Anion Gap 12 BUN 27 H Creatinine 1.59 H Est GFR ( Amer) 40 L Est GFR (Non-Af Amer) 33 L Glucose 284 H Lactic Acid Calcium 7.2 L Magnesium Total Bilirubin 0.9 Direct Bilirubin 0.7 H Indirect Bilirubin Not Reportable Neonat Total Bilirubin Not Reportable AST 25 ALT 28 Alkaline Phosphatase 84 Creatine Kinase CK-MB (CK-2) Troponin I Total Protein 6.9 Albumin 3.1 L Salicylates Urine Opiates Screen Urine Methadone Screen Acetaminophen Ur Barbiturates Screen Ur Phencyclidine Scrn Ur Amphetamines Screen U Benzodiazepines Scrn Urine Cocaine Screen U Marijuana (THC) Screen 10/05/16 10/05/16 10/05/16 07:36 07:36 07:36 WBC RBC Hgb Hct MCV MCH MCHC RDW Plt Count Seg Neutrophils % Lymphocytes % Monocytes % Eosinophils % Basophils % Absolute Neutrophils Absolute Lymphocytes Absolute Monocytes Absolute Eosinophils Absolute Basophils Carbonic Acid HCO3/H2CO3 Ratio ABG pH ABG pCO2 ABG pO2 ABG HCO3 ABG Total CO2 ABG O2 Saturation ABG Base Excess VBG pH VBG pCO2 VBG HCO3 VBG Base Excess FiO2 Sodium Potassium Chloride Carbon Dioxide Anion Gap BUN Creatinine Est GFR ( Amer) Est GFR (Non-Af Amer) Glucose Lactic Acid 2.5 H Calcium Magnesium Total Bilirubin Direct Bilirubin Indirect Bilirubin Neonat Total Bilirubin AST ALT Alkaline Phosphatase Creatine Kinase 268 H CK-MB (CK-2) 6.14 H Troponin I < 0.012 Total Protein Albumin Salicylates Urine Opiates Screen Urine Methadone Screen Acetaminophen Ur Barbiturates Screen Ur Phencyclidine Scrn Ur Amphetamines Screen U Benzodiazepines Scrn Urine Cocaine Screen U Marijuana (THC) Screen 10/05/16 10/05/16 10/06/16 14:06 14:06 05:15 WBC 7.8 RBC 2.99 L Hgb 8.4 L D Hct 25.7 L MCV 86 MCH 28.2 MCHC 32.8 RDW 14.1 H Plt Count 130 L Seg Neutrophils % 76.6 Lymphocytes % 17.0 Monocytes % 6.2 Eosinophils % 0.1 Basophils % 0.1 Absolute Neutrophils 6.0 Absolute Lymphocytes 1.3 Absolute Monocytes 0.5 Absolute Eosinophils 0.0 Absolute Basophils 0.0 Carbonic Acid HCO3/H2CO3 Ratio ABG pH ABG pCO2 ABG pO2 ABG HCO3 ABG Total CO2 ABG O2 Saturation ABG Base Excess VBG pH VBG pCO2 VBG HCO3 VBG Base Excess FiO2 Sodium Potassium Chloride Carbon Dioxide Anion Gap BUN Creatinine Est GFR ( Amer) Est GFR (Non-Af Amer) Glucose Lactic Acid Calcium Magnesium Total Bilirubin Direct Bilirubin Indirect Bilirubin Neonat Total Bilirubin AST ALT Alkaline Phosphatase Creatine Kinase 208 H CK-MB (CK-2) 5.49 H Troponin I < 0.012 Total Protein Albumin Salicylates Urine Opiates Screen Urine Methadone Screen Acetaminophen Ur Barbiturates Screen Ur Phencyclidine Scrn Ur Amphetamines Screen U Benzodiazepines Scrn Urine Cocaine Screen U Marijuana (THC) Screen 10/06/16 10/07/16 10/07/16 05:15 07:49 07:49 WBC 7.4 RBC 3.62 L Hgb 10.3 L Hct 30.6 L MCV 85 MCH 28.4 MCHC 33.6 RDW 13.9 Plt Count 161 Seg Neutrophils % 78.9 H Lymphocytes % 12.9 L Monocytes % 7.6 Eosinophils % 0.2 Basophils % 0.4 Absolute Neutrophils 5.8 Absolute Lymphocytes 1.0 Absolute Monocytes 0.6 Absolute Eosinophils 0.0 Absolute Basophils 0.0 Carbonic Acid HCO3/H2CO3 Ratio ABG pH ABG pCO2 ABG pO2 ABG HCO3 ABG Total CO2 ABG O2 Saturation ABG Base Excess VBG pH VBG pCO2 VBG HCO3 VBG Base Excess FiO2 Sodium 139.6 140.2 Potassium 3.7 3.4 L Chloride 108 H 104 Carbon Dioxide 23 25 Anion Gap 9 11 BUN 19 12 Creatinine 1.03 0.75 Est GFR ( Amer) > 60 > 60 Est GFR (Non-Af Amer) 54 L > 60 Glucose 87 95 Lactic Acid Calcium 7.3 L 8.9 Magnesium 1.8 Total Bilirubin 0.4 Direct Bilirubin 0.3 Indirect Bilirubin Not Reportable Neonat Total Bilirubin Not Reportable AST 25 ALT 21 Alkaline Phosphatase 77 Creatine Kinase CK-MB (CK-2) Troponin I Total Protein 5.9 L Albumin 2.8 L Salicylates Urine Opiates Screen Urine Methadone Screen Acetaminophen Ur Barbiturates Screen Ur Phencyclidine Scrn Ur Amphetamines Screen U Benzodiazepines Scrn Urine Cocaine Screen U Marijuana (THC) Screen Impressions: Chest X-Ray 10/05/16 00:00 IMPRESSION: Right IJ line. Moderate mixed interstitial and airspace opacity. Qualifiers PATEINT BEING DISCHARGED WITH ANY OF THE FOLLOWING DIAGNOSIS?: No Plan Time Spent: Less than 30 Minutes
== END 2016-10-07 13:12 | disposition home or self-care (01) | DRG 917 ==
LOC: ER 23:31 → EH 10-05 01:58 → ICU 10-05 03:27 → 5 10-06 15:08
PROVIDERS: ADMIT Internal Medicine; ATTEND Internal Medicine
PROC: 5A09457 Assistance with Respiratory Ventilation, 24-96 Consecutive Hours, Continuous Positive Airway Pressure (ICD-10-PCS; principal; 2016-10-04)
PROC: 05HM33Z Insertion of Infusion Device into Right Internal Jugular Vein, Percutaneous Approach (ICD-10-PCS; 2016-10-04)
PROC: 3E0F73Z Introduction of Anti-inflammatory into Respiratory Tract, Via Natural or Artificial Opening (ICD-10-PCS; 2016-10-05)
DX: T42.6X4A Poisoning by other antiepileptic and sedative-hypnotic drugs, undetermined, initial encounter (principal); J96.01 Acute respiratory failure with hypoxia; J69.0 Pneumonitis due to inhalation of food and vomit; N17.9 Acute kidney failure, unspecified; E87.2 Acidosis; T40.604A Poisoning by unspecified narcotics, undetermined, initial encounter; I95.2 Hypotension due to drugs; R41.82 Altered mental status, unspecified; I10 Essential (primary) hypertension; J44.9 Chronic obstructive pulmonary disease, unspecified; I25.10 Atherosclerotic heart disease of native coronary artery without angina pectoris; F32.9 Major depressive disorder, single episode, unspecified; G89.29 Other chronic pain; F17.210 Nicotine dependence, cigarettes, uncomplicated; Z88.2 Allergy status to sulfonamides; Z79.899 Other long term (current) drug therapy; Z86.73 Personal history of transient ischemic attack (TIA), and cerebral infarction without residual deficits; Z95.5 Presence of coronary angioplasty implant and graft
CPT/HCPCS: 36415; 71010; 80048; 80053; 80307; 82550; 82553; 82803; 83605; 83735; 84484; 85025; 93005; 93010; 94640; 94660; 96360; 96361; 99291; C1751; J1644; J2310; J3490; J7030; J7040; J7060; J7620

== ENCOUNTER 2018-10-20 07:39 | Emergency (ER) | payer MEDICARE ==
[2018-10-20 09:20] LABS: ABSOLUTE BASOPHILS # (AUTO) 0.1 10^3/uL (0.0-0.2); ABSOLUTE EOSINOPHILS # (AUTO) 0.1 10^3/uL (0.0-0.6); ABSOLUTE LYMPHOCYTES (AUTO) 1.7 10^3/uL (0.5-4.7); ABSOLUTE MONOCYTES (AUTO) 0.5 10^3/uL (0.1-1.4); ABSOLUTE NEUT (AUTO) 6.5 10^3/uL (1.7-8.2); BASOPHILS % (AUTO) 0.7 % (0-2); EOSINOPHILS % (AUTO) 1.5 % (0-6); HEMATOCRIT 36.1 % (36.0-47.0); LYMPHOCYTES % (AUTO) 19.1 % (13-45); MEAN CORPUSCULAR HEMOGLOBIN 28.9 pg (27.0-33.4); MEAN CORPUSCULAR HGB CONC 33.4 g/dL (32.0-36.0); MEAN CORPUSCULAR VOLUME 87 fl (80-97); MONOCYTES % (AUTO) 5.7 % (3-13); PLATELET COUNT 332 10^3/uL (150-450); RED BLOOD COUNT 4.17 10^6/uL (3.72-5.28); RED CELL DISTRIBUTION WIDTH 16.6 % (11.5-14.0); TOTAL CELLS COUNTED % (AUTO) 100 %; WHITE BLOOD COUNT 8.9 10^3/uL (4.0-10.5)
[2018-10-20 09:26] LABS: INTERNATIONAL RATION (INR) 1.08; PROTHROMBIN TIME 14.1 SEC (11.4-15.4); VENOUS BLOOD BASE EXCESS 0.8 mmol/L; VENOUS BLOOD HCO3 26.3 mmol/L (20-32); VENOUS BLOOD PCO2 45.5 mmHg (35-63); VENOUS BLOOD PH 7.38 (7.30-7.42)
[2018-10-20 09:29] LABS: APPEARANCE,URINE SLIGHTLY-CLOUDY; BILIRUBIN,URINE NEGATIVE (NEGATIVE); COLOR,URINE YELLOW; GLUCOSE, URINE NEGATIVE (NEGATIVE); KETONES,URINE NEGATIVE (NEGATIVE); LEUKOCYTE ESTERASE,URINE TRACE (NEGATIVE); NITRITE,URINE NEGATIVE (NEGATIVE); PROTEIN,URINE NEGATIVE (NEGATIVE); URINE SPECIFIC GRAVITY 1.017
--- NOTE | 2018-10-20 09:39 | RADIOLOGY REPORT (SQ) ---
EXAM DESCRIPTION: CHEST 2 VIEWS COMPLETED DATE/TIME: 10/20/2018 9:09 am REASON FOR STUDY: hypoxia COMPARISON: 06/05/2010 EXAM PARAMETERS: NUMBER OF VIEWS: two views TECHNIQUE: Digital Frontal and Lateral radiographic views of the chest acquired. RADIATION DOSE: NA LIMITATIONS: none FINDINGS: LUNGS AND PLEURA: There are chronic appearing bilateral pleural and parenchymal changes. Slight blunting of the left costophrenic angle consistent with small effusion. Superimposed acute ai rspace disease in the lingula either atelectasis or pneumonia. MEDIASTINUM AND HILAR STRUCTURES: No masses or contour abnormalities. HEART AND VASCULAR STRUCTURES: Heart normal size. No evidence for failure. BONES: No acute findings. HARDWARE: None in the chest. OTHER: No other significant finding. IMPRESSION: 1. Chronic bilateral pleural and parenchymal changes not significantly changed from prio r study. 2. Superimposed lingular airspace disease either atelectasis or pneumonia. TECHNICAL DOCUMENTATION: JOB ID: [id number] [employer]- All Rights Reserved Reading location - IP/workstation name: [email or web address]
--- NOTE | 2018-10-20 09:41 | RADIOLOGY REPORT (SQ) ---
EXAM DESCRIPTION: CT HEAD WITHOUT COMPLETED DATE/TIME: 10/20/2018 9:17 am REASON FOR STUDY: confusion COMPARISON: 06/05/2010 TECHNIQUE: Axial images acquired through the brain without intravenous contrast. Images reviewed wi th bone, brain and subdural windows. Additional sagittal and coronal reconstructions were generated. Images stored on PACS. All CT scanners at this facility use dose modulation, iterative reconstruction, and/or weight based d osing when appropriate to reduce radiation dose to as low as reasonably achievable (ALARA). [facility]: Dose Right [facility]: CareDose [facility]: Dose Right [facility]: Teradose 4D [facility]: [place] RADIATION DOSE: CT Rad equipment meets quality standard of care and radiation dose reduction techniq ues were employed. CTDIvol: 53.2 mGy. DLP: 991 mGy-cm. mGy. LIMITATIONS: None. FINDINGS: VENTRICLES: Normal size and contour. CEREBRUM: No masses. No hemorrhage. No midline shift. No evidence for acute infarction. Subtle are a of decreased attenuation in the left lateral thalamus is again noted and not significantly changed from prior study. CEREBELLUM: No masses. No hemorrhage. No alteration of density. No evidence for acute infarction. EXTRAAXIAL SPACES: No fluid collections. No masses. ORBITS AND GLOBE: No intra- or extraconal masses. Normal contour of globe without masses. CALVARIUM: No fracture. PARANASAL SINUSES: There is left maxillary sinusitis with an air-fluid level. SOFT TISSUES: No mass or hematoma. OTHER: No other significant finding. IMPRESSION: 1. No acute intracranial event. 2. Left maxillary sinusitis. EVIDENCE OF ACUTE STROKE: NO. COMMENT: Quality ID # [id number]: Final reports with documentation of one or more dose reduction techniques (e.g., Automated exposure control, adjustment of the mA and/or kV according to patient size, use of iterative reconstruction technique) TECHNICAL DOCUMENTATION: JOB ID: [id number] [employer]- All Rights Reserved Reading location - IP/workstation name: [email or web address]
[2018-10-20 09:50] LABS: URINE AMPHETAMINES SCREEN NEGATIVE; URINE BARBITURATES SCREEN NEGATIVE; URINE BENZODIAZEPINES SCREEN NEGATIVE; URINE COCAINE SCREEN NEGATIVE; URINE MARIJUANA (THC) SCREEN NEGATIVE; URINE METHADONE SCREEN NEGATIVE; URINE PHENCYCLIDINE SCREEN NEGATIVE
[2018-10-20 09:52] LABS: ALANINE AMINOTRANSFERASE < 6 U/L (9-52); ALBUMIN 3.7 g/dL (3.5-5.0); ALKALINE PHOSPHATASE 173 U/L (38-126); ANION GAP 7 (5-19); ASPARTATE AMINO TRANSFERASE 26 U/L (14-36); BILIRUBIN,DIRECT 0.3 mg/dL (0.0-0.4); BILIRUBIN,TOTAL 0.6 mg/dL (0.2-1.3); BLOOD UREA NITROGEN 16 mg/dL (7-20); CALCIUM 9.4 mg/dL (8.4-10.2); CARBON DIOXIDE 29 mmol/L (22-30); CHLORIDE 105 mmol/L (98-107); GLUCOSE 94 mg/dL (75-110); POTASSIUM 3.7 mmol/L (3.6-5.0); SODIUM 141.4 mmol/L (137-145); TOTAL PROTEIN 8.7 g/dL (6.3-8.2)
[2018-10-20] MEDS ORDERED: CEFTRIAXONE 1 GM/D5W RTU 1 GM/50 ML RTUPB IV ONE (10:25)
[2018-10-20] MEDS ORDERED: METHYLPREDNISOLONE INJ 125 MG/2 ML SDV IV ONE (10:29)
[2018-10-20] MEDS ORDERED: IPRATROPIUM/ALBUTEROL 0.5-2.5 MG/3 ML AMPUL NEB ONE (10:29)
--- NOTE | 2018-10-20 12:28 | ER Document Report ---
ED General - General Chief Complaint: Altered Mental Status Stated Complaint: AMS Time Seen by Provider: 10/20/18 08:53 Mode of Arrival: Ambulatory Information source: Patient, Relative, PENDING SALE TO [facility] Records Notes: 68-year-old female with hypertension, COPD, coronary artery disease, previous history of CVA presents with her who is concerned for agitation, confusion which started 2 days prior to arrival. reports that his son recently moved here to help take care of both himself and his and already wants to leave due to the patient's aggressive behavior. Per the patie nt stated yesterday that she was going to kill herself. Patient denies this and states that she does not recall anything that occurred yesterday. Patient has no physical complaints. She is alert and oriented x4. reports that the last time the patient had pneumonia she had a similar presentation. is requesting evaluation by behavioral health. Patient denies suicidal ideation, depression. TRAVEL OUTSIDE OF THE [place] IN LAST 30 DAYS: No - HPI Onset: Other Onset/Duration: Gradual, Persistent, Worse Quality of pain: No pain Severity: None Pain Level: Denies Associated symptoms: Productive cough, Shortness of breath - Chronic, Other - Agitation. denies: Fever, Headache, Leg swelling, Nausea, Vomiting Exacerbated by: Coughing Relieved by: Denies Similar symptoms previously: Yes Recently seen / treated by doctor: No - Related Data Allergies/Adverse Reactions: Sulfa (Sulfonamide Antibiotics) Allergy (Verified 10/20/18 07:42) Past Medical History - General Information source: Patient, Relative - Social History Smoking Status: Current Every Day Smoker Cigarette use (# per day): Yes - 15 Smoking Education Provided: Yes - Smoking cessation counseling was provided for 4 minutes at the bedside Frequency of alcohol use: None Drug Abuse: None, Prescription drugs - Remote history Lives with: Family, Spouse/Significant other Family History: Reviewed & Not Pertinent, Other - Unobtainable Patient has suicidal ideation: No Patient has homicidal ideation: No - Past Medical History Cardiac Medical History: Reports: Hx Hypertension Pulmonary Medical History: Reports: Hx Bronchitis, Hx COPD, Hx Pneumonia Neurological Medical History: Reports: Hx Cerebrovascular Accident - 2011 Renal/ Medical History: Denies: Hx Peritoneal Dialysis GI Medical History: Reports: Hx Hiatal Hernia Past Surgical History: Reports: Hx Cardiac Surgery - Stent placed 05/14/2009 - Immunizations Hx Diphtheria, Pertussis, Tetanus Vaccination: - unsure Review of Systems - Review of Systems Notes: REVIEW OF SYSTEMS: CONSTITUTIONAL : Denies fever, chills, or sweats. Denies recent illness. Denies weight loss, recent hospitalizations. EENT: Denies visual changes, eye pain. Denies sore throat, oral lesions, difficulty swallowing. CARDIOVASCULAR: Denies chest pain. Denies palpitations. Denies lower extremity edema. RESPIRATORY: + cough. + shortness of breath, wheezing. GASTROINTESTINAL: Denies abdominal pain or distention. Denies nausea, vomiting, or diarrhea. Denies blood in vomitus, stools, or per rectum. Denies black, tarry stools. Denies constipation. GENITOURINARY: Denies difficulty urinating, painful urination, frequency, blood in urine, or vaginal discharge. MUSCULOSKELETAL: Denies back or neck pain or stiffness. Denies joint pain or swelling. SKIN: Denies rash, lesions or sores. HEMATOLOGIC : Denies easy bruising or bleeding. LYMPHATIC: Denies swollen glands. NEUROLOGICAL: + confusion or altered mental status. Denies loss of consciousne ss. Denies dizziness or lightheadedness. Denies headache. Denies weakness or paralysis. Denies problems difficulty with ambulation, slurred speech. Denies sensory loss, numbness, or tingling. Denies seizures. PSYCHIATRIC: Denies anxiety or stress. Denies depression, suicidal ideation, or homicidal ideation. Denies visual or auditory hallucinations. Physical Exam - Vital signs Vitals: Temp Pulse Resp BP Pulse Ox 97.8 F 89 18 104/61 90 L 10/20/18 07:45 10/20/18 07:45 10/20/18 07:45 10/20/18 07:45 10/20/18 07:45 - Notes Notes: PHYSICAL EXAMINATION: GENERAL: Frail, cachectic but alert and awake HEAD: Atraumatic, normocephalic. EYES: Pupils equal round and reactive to light, extraocular movements intact, conjunctiva are normal. ENT: Nares patent, oropharynx clear without exudates. Moist mucous membranes. NECK: Normal range of motion, supple without lymphadenopathy LUNGS: Diffuse wheezing, coarse breath sounds in the left lower lung field. No accessory muscle use, no increased work of breathing. Patient able to speak in full sentences. HEART: Regular rate and rhythm without murmurs ABDOMEN: Soft, nontender, nondistended abdomen. No guarding, no rebound. No masses appreciated. Female : deferred Musculoskeletal: Normal range of motion, no pitting or edema. No cyanosis. NEUROLOGICAL: Cranial nerves grossly intact. Normal speech, normal gait. Normal sensory, motor exams PSYCH: Denies suicidal ideation. SKIN: Warm, Dry, normal turgor, no rashes or lesions noted. Course - Re-evaluation Re-evalutation: 10/20/18 12:32 Laboratory 10/20/18 10/20/18 10/20/18 09:05 09:05 09:05 WBC 8.9 RBC 4.17 Hgb 12.0 Hct 36.1 MCV 87 MCH 28.9 MCHC 33.4 RDW 16.6 H Plt Count 332 Seg Neutrophils % 73.0 Lymphocytes % 19.1 Monocytes % 5.7 Eosinophils % 1.5 Basophils % 0.7 Absolute Neutrophils 6.5 Absolute Lymphocytes 1.7 Absolute Monocytes 0.5 Absolute Eosinophils 0.1 Absolute Basophils 0.1 PT 14.1 INR 1.08 VBG pH VBG pCO2 VBG HCO3 VBG Base Excess Sodium 141.4 Potassium 3.7 Chloride 105 Carbon Dioxide 29 Anion Gap 7 BUN 16 Creatinine 1.02 Est GFR ( Amer) > 60 Est GFR (Non-Af Amer) 54 L Glucose 94 Lactic Acid Calcium 9.4 Total Bilirubin 0.6 Direct Bilirubin 0.3 Neonat Total Bilirubin Not Reportable Neonat Direct Bilirubin Not Reportable Neonat Indirect Bili Not Reportable AST 26 ALT < 6 L Alkaline Phosphatase 173 H Troponin I Total Protein 8.7 H Albumin 3.7 Urine Color Urine Appearance Urine pH Ur Specific [place] Urine Protein Urine Glucose (UA) Urine Ketones Urine Blood Urine Nitrite Urine Bilirubin Urine Urobilinogen Ur Leukocyte Esterase Urine WBC (Auto) Urine RBC (Auto) U Hyaline Cast (Auto) Urine Bacteria (Auto) Squamous Epi Cells Auto Urine Mucus (Auto) Urine Ascorbic Acid Urine Opiates Screen Urine Methadone Screen Ur Barbiturates Screen Ur Phencyclidine Scrn Ur Amphetamines Screen U Benzodiazepines Scrn Urine Cocaine Screen U Marijuana (THC) Screen 10/20/18 10/20/18 10/20/18 09:05 09:05 09:05 WBC RBC Hgb Hct MCV MCH MCHC RDW Plt Count Seg Neutrophils % Lymphocytes % Monocytes % Eosinophils % Basophils % Absolute Neutrophils Absolute Lymphocytes Absolute Monocytes Absolute Eosinophils Absolute Basophils PT INR VBG pH 7.38 VBG pCO2 45.5 VBG HCO3 26.3 VBG Base Excess 0.8 Sodium Potassium Chloride Carbon Dioxide Anion Gap BUN Creatinine Est GFR ( Amer) Est GFR (Non-Af Amer) Glucose Lactic Acid 1.8 Calcium Total Bilirubin Direct Bilirubin Neonat Total Bilirubin Neonat Direct Bilirubin Neonat Indirect Bili AST ALT Alkaline Phosphatase Troponin I < 0.012 Total Protein Albumin Urine Color Urine Appearance Urine pH Ur Specific [place] Urine Protein Urine Glucose (UA) Urine Ketones Urine Blood Urine Nitrite Urine Bilirubin Urine Urobilinogen Ur Leukocyte Esterase Urine WBC (Auto) Urine RBC (Auto) U Hyaline Cast (Auto) Urine Bacteria (Auto) Squamous Epi Cells Auto Urine Mucus (Auto) Urine Ascorbic Acid Urine Opiates Screen Urine Methadone Screen Ur Barbiturates Screen Ur Phencyclidine Scrn Ur Amphetamines Screen U Benzodiazepines Scrn Urine Cocaine Screen U Marijuana (THC) Screen 10/20/18 10/20/18 09:05 09:05 WBC RBC Hgb Hct MCV MCH MCHC RDW Plt Count Seg Neutrophils % Lymphocytes % Monocytes % Eosinophils % Basophils % Absolute Neutrophils Absolute Lymphocytes Absolute Monocytes Absolute Eosinophils Absolute Basophils PT INR VBG pH VBG pCO2 VBG HCO3 VBG Base Excess Sodium Potassium Chloride Carbon Dioxide Anion Gap BUN Creatinine Est GFR ( Amer) Est GFR (Non-Af Amer) Glucose Lactic Acid Calcium Total Bilirubin Direct Bilirubin Neonat Total Bilirubin Neonat Direct Bilirubin Neonat Indirect Bili AST ALT Alkaline Phosphatase Troponin I Total Protein Albumin Urine Color YELLOW Urine Appearance SLIGHTLY-CLOUDY Urine pH 5.0 Ur Specific [place] 1.017 Urine Protein NEGATIVE Urine Glucose (UA) NEGATIVE Urine Ketones NEGATIVE Urine Blood NEGATIVE Urine Nitrite NEGATIVE Urine Bilirubin NEGATIVE Urine Urobilinogen 2.0 H Ur Leukocyte Esterase TRACE H Urine WBC (Auto) 23 Urine RBC (Auto) 1 U Hyaline Cast (Auto) 6 Urine Bacteria (Auto) 3+ Squamous Epi Cells Auto 2 Urine Mucus (Auto) MANY Urine Ascorbic Acid NEGATIVE Urine Opiates Screen NEGATIVE Urine Methadone Screen NEGATIVE Ur Barbiturates Screen NEGATIVE Ur Phencyclidine Scrn NEGATIVE Ur Amphetamines Screen NEGATIVE U Benzodiazepines Scrn NEGATIVE Urine Cocaine Screen NEGATIVE U Marijuana (THC) Screen NEGATIVE Chest X-Ray 10/20/18 08:54 IMPRESSION: 1. Chronic bilateral pleural and parenchymal changes not sign ificantly changed from prior study. 2. Superimposed lingular airspace disease either atelectasis or pneumonia. Head CT 10/20/18 09:05 IMPRESSION: 1. No acute intracranial event. 2. Left maxillary sinusitis. EVIDENCE OF ACUTE STROKE: NO. Temp Pulse Resp BP Pulse Ox 97.8 F 89 18 104/61 90 L 10/20/18 07:45 10/20/18 07:45 10/20/18 07:45 10/20/18 07:45 10/20/18 07:45 68-year-old female with COPD presented with her who is concerned for pneumonia or a urinary tract infection due to patient's change in behavior and increased agitation. Vital signs reviewed and patient is mildly hypoxic upon arrival but afebrile and without any increased work of breathing. On exam is significant for diffuse wheezing and coarse breath sounds. Chest x-ray shows a left-sided pneumonia. Sepsis work-up obtained and unremarkable except for chest x-ray findings. Patient is without leukocytosis, fever, elevated lactate. 10/20/18 12:33 Patient's is adamant that the patient is agitated and needs to be held for psychiatric reasons. He states the patient is more agitated than normal and yesterday stated she was going to kill herself. denies suicidal ideation and states that they were arguing and she said it out of anger. Upon the 's persistence the patient was evaluated by behavioral health and deemed competent to be discharged home if that is what she was wishing. Patient's curb 65 score is 1 making her low risk for a 30-day mortality. She is afebrile, tolerating p.o. Patient did receive 1 g of ceftriaxone during her ED course. She will be discharged home with doxycycline and prednisone. 10/20/18 12:35 Patient is agitated and is demanding to be discharged home. She is alert and oriented x4. She answers all questions regarding her health, I, present situation appropriately. She does not seem confused to the neither myself or behavioral health and at this point she will be discharged. To be noted is that patient is very upset with the patient's discharge and states "I will just call 911 later to bring him back and". 10/20/18 12:37 Repeat pulse ox 94%. 10/20/18 19:55 Patient was evaluated and treated as appropriate for the patient's presenting symptoms and complaint, with consideration of any critical or life threatening conditions that may be associated with their obtained history and exam as noted above. All results were discussed with patient and her who is at the bedside patient provided the opportunity to ask questions, and express concerns. Patient was educated on treatments based on their presumed diagnosis as noted above. At this time we will discharge the patient with return precautions and follow-up recommendations. Verbal discharge instructions given a the bedside. Medication warnings reviewed. Patient is in agreement with this plan and has verbalized understanding of return precautions. After careful consideration I feel that that patient can be safely discharged from the emergency department, they were advised to followup with a primary care physician in 2-3 days. Dictation on this chart was performed using voice recognition software and may result in unintended grammatical, spelling, syntax or errors. - Vital Signs Vital signs: Temp Pulse Resp BP Pulse Ox 97.7 F 106 H 18 104/83 94 10/20/18 12:35 10/20/18 12:35 10/20/18 12:35 10/20/18 12:35 10/20/18 12:35 - Laboratory Result Diagrams: 10/20/18 09:05 10/20/18 09:05 Laboratory results interpreted by me: 10/20/18 10/20/18 10/20/18 09:05 09:05 09:05 RDW 16.6 H Est GFR (Non-Af Amer) 54 L ALT < 6 L Alkaline Phosphatase 173 H Total Protein 8.7 H Urine Urobilinogen 2.0 H Ur Leukocyte Esterase TRACE H - Diagnostic Test Radiology reviewed: Image reviewed, Reports reviewed - EKG Interpretation by Fl EKG shows normal: Sinus rhythm Rate: Normal Rhythm: NSR When compared to previous EKG there are: No significant change Discharge - Discharge Clinical Impression: COPD with exacerbation Pneumonia Qualifiers: Pneumonia type: due to unspecified organism Laterality: left Lung location: un specified part of lung Qualified Code(s): J18.9 - Pneumonia, unspecified or ganism Condition: Good Disposition: HOME, SELF-CARE Instructions: Chronic Obstructive Lung Disease ([facility]), Pneumonia ([facility]) Additional Instructions: You were seen for a COPD exacerbation. Your symptoms improved with treatment here in the emergency department. However, it is very important that you return to the emergency department immediately if you began to have worsening difficulty breathing that does not respond to your normal home nebulizers. You are also being sent home on a five-day course of steroids that you should start taking tomorrow. Please also take the antibiotics as prescribed. Please also follow closely with your primary care physician. You should eturn to emergency department if you develop fever greater than 101, persistent cough, persistent vomiting, pass out, or any other symptoms that are concerning to you. You have been diagnosed with a pneumonia. It is very important that you take all of your antibiotics until they are gone even if you are feeling better. Please return to the emergency department immediately if you began having worsening shortness of breath, become confused, have worsening pain, pass out, have persistent vomiting that prevents you from being able to drink fluids for more than 12 hours, or have any other symptoms that are worrisome to you. Please follow-up with your primary care doctor in the next 1-2 days. Prescriptions: Doxycycline Hyclate 100 mg PO BID #14 capsule Prednisone [Deltasone 20 mg Tablet] 2 tab PO DAILY 5 Days #10 tablet
[2018-10-20 12:39] VITALS: BP 104/83
--- NOTE | 2018-10-20 16:12 | PSYCHOLOGICAL NOTE ---
Psych Note - Psych Note Date seen by psych provider: 10/20/18 Time seen by psych provider: 12:10 Psych Note: 68-year-old female with hypertension, COPD, coronary artery disease, previous history of CVA presents with her who is concerned for agitation, confusion which started 2 days prior to arrival. Patient is alert and orientated to person, place, time and circumstance. Mood is irritable with congruent affect. Patient denies suicidal and homicidal marlyn ation. She confirms making suicidal comments during arguments with her family; However, denies plans means or intent ("when urine argument you say things to hurt them and they say things to hurt you... Is not something you actually do.") Delusions are absent and behavior is congruent with an intact reality based presentation i.e. organized and linear thought process. Eye contact was well-maintained. Conversational speech clearly communicates her irritable mood. Intellectual abilities appear to be within the average range. Attention and concentration are currently good. Insight, judgment, impulse control is fair. Deferred No medication recommendations at this time Impression\\plan: Patient is cleared from acute psychiatric services. Patient is completely orientated and able to clearly discuss both current and past medical events to include a heart attack in 2009 where she needed a stent placed and a minor stroke approximately 5 years ago. Patient discussed having COPD, diffic ulty with multiple events of pneumonia, and having a "gland removed from her throat." Patient's family discussed with clinician concerns that the patient's presentation is significantly different from her baseline. They disclosed that after approximately 2 days of antibiotic the patient returns to her normal "sweet" self. Patient's family is upset that she will not be admitted medically to be kept until she is no longer this "ugly, evil person." Patient's family report they want the patient committed. Clinician attempted to provide psychoeducation on IVC statute is for psychiatric not medical. Patient's current presentation being directly correlated to a medical condition in which the family state is immediately alleviated after a few days of antibiotic. Patient is not demonstrating any behaviors of report responding to internal stimuli. Denies suicidal homicidal ideation. Does admit to making suicidal comments during arguments in order to "hurt" family members because she reports they hurt her emotionally first. Dr. Lee was consulted to care management of this patient; attending physicians in agreement with recommendations and disposition.
--- NOTE | 2018-10-20 20:00 | EKG REPORT ---
SEVERITY:- ABNORMAL ECG - SINUS RHYTHM ATRIAL PREMATURE COMPLEX RIGHT ATRIAL ABNORMALITY : Confirmed by: Gabbie Miranda MD 20-Oct-2018 20:00:08
== END 2018-10-20 12:51 | disposition home or self-care (01) ==
LOC: ER 07:39
DX: J44.0 Chronic obstructive pulmonary disease with (acute) lower respiratory infection (principal); J18.9 Pneumonia, unspecified organism; J44.1 Chronic obstructive pulmonary disease with (acute) exacerbation; J32.0 Chronic maxillary sinusitis; R45.1 Restlessness and agitation; R05 Cough; R06.02 Shortness of breath; R09.02 Hypoxemia; I10 Essential (primary) hypertension; I25.10 Atherosclerotic heart disease of native coronary artery without angina pectoris; F17.210 Nicotine dependence, cigarettes, uncomplicated; Z71.6 Tobacco abuse counseling; Z86.73 Personal history of transient ischemic attack (TIA), and cerebral infarction without residual deficits; Z88.2 Allergy status to sulfonamides; Z95.5 Presence of coronary angioplasty implant and graft
CPT/HCPCS: 93005; 99406; 94640; 99285; 96375; 96365; 36415; 87040; 87086; 85025; 85610; 87088; 80053; 81001; 84484; 87186; 80307; 82803; 83605; 71046; 70450; 93010; J2930; J0696; A9270; J7620